=== PATIENT | female | born 1965 | race Caucasian/White ===

== ENCOUNTER → 2025-08-23 | Outpatient (REF) | payer OTHER ==
[~2025-08-23] MED LIST: CIPR-249 PO; COLA100C5 PO; METR-265 PO; OXYB5TAB14 PO; PERCOCET PO; TOUJ1.2I INJ; VENTAER INH
[2025-08-23 18:28] LABS: APPEARANCE, URINE CLEAR (CLEAR); BACTERIA, URINE AUTO NEGATIVE (NEGATIVE); BILIRUBIN, URINE AUTO NEGATIVE (NEGATIVE); BLOOD, URINE BLOOD NEGATIVE (NEGATIVE); GLUCOSE, URINE (UA) AUTO NEGATIVE (NEGATIVE); KETONE, URINE AUTO NEGATIVE (NEGATIVE); LEUKOCYTE ESTERASE, URINE AUTO NEGATIVE (NEGATIVE); NITRITE, URINE AUTO NEGATIVE (NEGATIVE); PROTEIN, URINE AUTO NEGATIVE (NEGATIVE); RBC, URINE AUTO 0 /HPF (0-3); SPECIFIC GRAVITY URINE AUTO 1.004 (1.002-1.035); SQUAMOUS EPITHELIAL CELL UR AU 0 /HPF (0-6); UROBILINOGEN, URINE AUTO 0.2 mg/dL (0.0-2.0); WBC, URINE AUTO 0 /HPF (0-3)
== END ==
LOC: M SMT 16:48
PROVIDERS: ATTEND Urology
DX: N39.0 Urinary tract infection, site not specified (principal)